=== PATIENT | male | born 1950 | race Caucasian/White ===

== ENCOUNTER 2016-11-30 06:33 | Day surgery (SDC) | payer OTHER ==
[2016-11-25 14:43] LABS: HEMATOCRIT 43.2 % (40.0-51.0); HEMOGLOBIN 14.8 g/dL (13.6-17.8)
[2016-11-25 14:53] LABS: BUN (BLOOD UREA NITROGEN) 14 MG/DL (6-23); CALCIUM, SERUM 8.8 MG/DL (8.5-10.4); CHLORIDE, SERUM 103 MMOL/L (96-112); CO2 (CARBON DIOXIDE) 28 MMOL/L (24-34); CREATININE 0.84 MG/DL (0.70-1.30); GFR AFRICAN AMERICAN 104 ML/MIN (>=60); GFR NON AFRICAN AMERICAN 90 ML/MIN (>=60); GLUCOSE, SERUM 133 MG/DL (60-99); POTASSIUM, SERUM 4.3 MMOL/L (3.5-5.3); SODIUM, SERUM 141 MMOL/L (135-148)
--- NOTE | ~2016-11-30 | OP ---
Record Of Operation [facility] [address] [place]. [address] NAME: MAURIZIO LIU : 46 STATUS : [facility]#: [id number] AGE: 66 ADM/REG DATE : 11/30/16 MR#: [id number] REPORT SERV DATE: 11/30/16 DICTATED BY: Marcos BECKMAN DATE: 11/30/16 REPORT STATUS : Draft TRANSCRIBED BY: RIKL DATE: 11/30/16 DATE OF PROCEDURE: 11/30/2016 PREOPERATIVE DIAGNOSIS: Elevated PSA. POSTOPERATIVE DIAGNOSIS: Elevated PSA. PROCEDURE: Transrectal ultrasound-guided needle biopsy of the prostate. SURGEON: Marcos Beckman M.D. ANESTHESIA: MAC. COMPLICATIONS: None. DRAINS: None. BRIEF HISTORY: Mr. Liu is a 66-year-old white male with a rising PSA. Most recently it was 5.41. We decided to proceed with biopsy. He requested anesthesia. He received appropriate preoperative antibiotic prophylaxis. We discussed risks of bleeding, infection, anesthesia, injury to adjacent organs, inability to detect cancer even if present, etc. There were no unanswered questions. DESCRIPTION OF PROCEDURE: Under excellent MAC anesthesia, the patient was placed in a left lateral decubitus position, knees to chest. Transrectal ultrasonography was performed and revealed symmetric gland with some central calcifications of prostate volume of 40 mL. Biopsies were then taken from the left side, two from the base, three from the mid gland, two from the apex, similarly on the right, two from the base, three from mid gland, and two from the apex. The patient tolerated the procedure well. We will discharge as an outpatient with the following instructions. DISCHARGE INSTRUCTIONS: Home today. Plan is to call for severe bleeding or fever. Otherwise, follow up in office in one week to review pathology. TIAGO/SANDI Marcos Beckman M.D. / [id number] CC: Taisha Forbes M.D.
[~2016-11-30 06:33] MED LIST: ASAB PO; FISH OIL1200 MG PO; FORTAMET500 MG PO; GLUCXL10 PO; KDUR20 PO; LANTUSCART SC; LIPITOR20 PO; NORV5 PO; ROYAL JELLY PO; SAW PALMETT2 PO; ZESTORETIC PO; [UNRECOGNIZED DRUG - CODE] PO
== END 2016-11-30 17:42 | disposition home or self-care (01) ==
LOC: SDC 06:33
PROC: 0V903ZX Drainage of Prostate, Percutaneous Approach, Diagnostic (ICD-10-PCS; principal; 2016-11-30 09:00)
DX: N42.9 Disorder of prostate, unspecified (principal); R97.20 Elevated prostate specific antigen [PSA]; I10 Essential (primary) hypertension; E11.9 Type 2 diabetes mellitus without complications; E78.5 Hyperlipidemia, unspecified; E78.00 Pure hypercholesterolemia, unspecified; H91.90 Unspecified hearing loss, unspecified ear; Z72.89 Other problems related to lifestyle; Z88.8 Allergy status to other drugs, medicaments and biological substances; Z79.82 Long term (current) use of aspirin; Z79.84 Long term (current) use of oral hypoglycemic drugs; Z79.4 Long term (current) use of insulin; Z79.899 Other long term (current) drug therapy; Z98.890 Other specified postprocedural states
CPT/HCPCS: 76872; 80048; 82962; 85014; 85018; 88305; 93005; J2250; J3010